=== PATIENT | male | born 1970 | race Caucasian/White ===

== ENCOUNTER → 2018-10-04 | Outpatient (CLI) | payer SELFPAY ==
--- NOTE | 2018-10-04 13:22 | PCVCIMAG ---
APPROVED REPORT Study performed: 10/04/2018 11:42:20 Exam: Stress Echocardiogram Indication: Screening for CAD, badycardia Patient Location: Echo lab Stress Nurse: Daisy Corley RN Room #: 2 Status: routine Ht: 5 ft 7 in HR: 57 bpm BP: 140/92 mmHg Rhythm: NSR Medical History Medical History: HTN Cardiac Risk Factors: HTN, FHX of CAD Previous Cardiac Procedures: none Pretest Chest Pain Characteristics: No chest pain Exercise History: Physically active Procedure The patient underwent an Exercise Stress Test using the Prema Protocol. Blood pressure, heart rate, and EKG were monitored. An Echocardiogram was performed by legal technician in four stages in quad fashion. At peak stress, four selected images were obtained and placed side by side with resting images for comparison. Stress Test Details Stress Test: Exercise stress testing was performed using a Prema protocol. HR Resting HR: 57 bpmMax Heart Rate (APMHR): 173 bpm Max HR Achieved: 157 bpmTarget HR (85% APMHR): 147 bpm % of APMHR: 90 Recovery HR: 93 bpm HR response to stress: Normal HR response to stress BP Resting BP: 140/92 mmHg Max BP: 168/90 mmHg Recovery BP: 148/84 mmHg BP response to stress: Normal blood pressure response to stress. ECG Resting ECG: Sinus Rhythm, nonspecific T abnormalities Stress ECG: Sinus Rhythm ST Change: Non-ischemic Maximum ST Deviation: -0.20 mm Arrhythmia: occ PAC Recovery ECG: Sinus Rhythm Recovery ST Change: Non-ischemic Recovery Arrhythmia: APC Clinical Reason for Termination: Maximal effort Stress Symptoms: none Exercise duration: 12 min 46 sec Highest Stage Achieved: Stage 5: 5.0 mph at 18% grade. Exercise capacity: 16.4 METs Overall Exercise Capacity for Age: Excellent Scale: Active Angina Score: None No complications. Stress ECG Conclusion The patient exercised according to the PREMA protocol for 12:46 mins; achieving a work level of 16.4 METS. The resting heart rate of 57 bpm danielle to a maximum heart rate of 157 bpm. This value represent 90% of the maximal, age-predicted heart rate. The resting blood pressure of 140/92 mmHg, danielle to a maximum blood pressure of 168/90 mmHg. The exercise test was stopped due to fatigue. Davies Treadmill Score is 13.0 which is Low risk. Pre-Stress Echo The resting Echocardiogram showed normal left ventricular contractility with an estimated Ejection Fraction of about 55-60%. Normal wall motion in all segments on baseline images. Post-Stress Echo The stress Echocardiogram showed normal left ventricular contractility with an estimated Ejection Fraction of about 65-70%. Normal augmentation of wall motion in all segments on post stress images. Clinical No clinical or ECG evidence for ischemia. Conclusion Clinical Response: Non-ischemic Exercise Capacity: Superior Stress ECG Response: Non-ischemic Stress Echo Images: Non-ischemic No clinical, EKG or echocardiographic evidence for ischemia. No echocardiographic evidence for exercise induced ischemia. Normal stress echocardiogram with maximal exercise stress. 1. Low risk study No prior study available for comparison. <Conclusion> No clinical, EKG or echocardiographic evidence for ischemia. No echocardiographic evidence for exercise induced ischemia. Normal stress echocardiogram with maximal exercise stress. 1. Low risk study
== END | disposition home or self-care (01) ==
LOC: PCVCIMAG 11:37
PROVIDERS: ATTEND Internal Medicine
DX: R00.1 Bradycardia, unspecified (principal); E78.5 Hyperlipidemia, unspecified; I10 Essential (primary) hypertension
CPT/HCPCS: 93325; 93351